=== PATIENT | female | born 1980 | race Caucasian/White ===

== ENCOUNTER → 2019-06-25 11:41 | Outpatient (BNVA) | payer BC, SELFPAY | PROVIDERS: Visit Provider Nurse Practitioner Family | DX: E11.65 Type 2 diabetes mellitus with hyperglycemia (principal); Z72.0 Tobacco use; K92.0 Hematemesis | CPT/HCPCS: 36416; 82962 ==

== ENCOUNTER 2019-06-27 19:19 | Emergency (ER) | payer BC, SELFPAY ==
[2019-06-27 19:43] VITALS: BP 104/71; PULSE 106; RESP 18; TEMP 36.3; O2SAT 98; BMI 29.0
--- NOTE | 2019-06-27 20:01 | ECG_ITS ---
Measurements Intervals [place] Rate: 101 P: 55 [place]: 132 QRS: 20 QRSD: 91 T: 47 QT: 355 QTc: 461 SINUS TACHYCARDIA POSSIBLE LEFT ATRIAL ENLARGEMENT [-0.1mV P WAVE IN V1/V2] ABNORMAL RHYTHM ECG No previous ECG available for comparison Electronically Signed On 06-28-2019 20:47:24 CDT by Haydee Haro M.D. [email or web address]
--- NOTE | 2019-06-27 20:18 | ED_ITS ---
HPI - Dizziness General: Chief Complaint: Dizziness Stated Complaint: dizzy/possible diabetic problems Time Seen by Provider: 06/27/19 20:18 History of Present Illness: HPI Narrative: Patient is a 38-year-old female who comes into the ED feeling lightheaded and dizzy. Patient states that she has been having the symptoms for the past 2 days. Patient also states that on Friday she was nauseous and vomiting a lot. She has not had any vomiting and nausea since Friday but has not eaten or drink much these past 2 days, has a loss of appetite. Patient also says she has diabetes and she is not been compliant with taking her medications and checking her blood sugars. Patient states she has been diagnosed with diabetes probably about 5 years ago and she has not taken any meds or checked her blood sugars for the past couple years. Patient states she has not eaten anything today. Patient does states she has had some shortness of breath the past couple days. Associated symptoms: Denies chest pain, chills, headache(s), nausea, nasal congestion, palpitations or vomiting Associated neuro symptoms: Deny numbness in extremities Review of Systems Const: Reports: change in appetite; Denies: fever, chills or fatigue Eyes: Denies: change in vision or eye discomfort ENMT: Denies: throat pain, painful swallowing, nasal discharge or nasal congestion Card: Reports: lightheadedness (when she stands up and is walking); Denies: chest pain, palpitations, edema, swelling of feet/ankles, shortness of breath on exertion or shortness of breath when lying down Resp: Reports: non-productive cough (chronic smokers cough); Denies: shortness of breath or productive cough GI: Reports: abdominal pain (epigastric); Denies: nausea, vomiting, diarrhea, constipation or blood in stool : Denies: flank pain, painful urination or blood in urine Musc: Denies: neck pain, back pain or extremity swelling Skin/Breast: Denies: rash or new lesion Neuro: Denies: headache, numbness in extremities or weakness in extremities PFSH ED PFSH: Family History Family/Other Diabetes Denies family history of CAD (coronary artery disease) Cancer Social History Smoking and tobacco status: current every day smoker cigarettes Packs smoked per day: 1 Quit status (tobacco): not considering quitting Second hand smoke exposure: No Alcohol intake: current Alcohol intake frequency: holidays/special occasions only Desire information about alcohol rehabilitation?: No Counseling given: No History of recent travel: No Physical Exam Narrative: EXAM NARRATIVE: Patient is a 38-year-old female who is sitting comfortably in the bed when I enter the room. She is not showing any signs of acute distress or pain. Const: COMMON NORMALS: oriented x3 HENMT: COMMON NORMALS: normocephalic HEAD & SCALP: normocephalic MOUTH: oral and palatal mucosa normal THROAT: posterior oropharynx normal and uvula midline Neck/C-Spine: COMMON NORMALS: supple GENERAL: Yes normal visual inspection Resp: COMMON NORMALS: normal respiratory effort, no retractions, no use of accessory muscles and clear to auscultation bilaterally AUSCULTATION: clear to auscultation bilaterally Cardio: COMMON NORMALS: regular rate, regular rhythm, S1 normal heart sound, S2 normal heart sound, no gallops, no clicks, no murmurs and peripheral pulses 2+ throughout RATE: regular rate RHYTHM: regular rhythm HEART SOUNDS: S1 normal and S2 normal PERIPHERAL PULSES: pulses 2+ throughout GI: COMMON NORMALS: normal to inspection, nondistended, normoactive bowel sounds, soft to palpation and no masses PALPATION: Yes soft and Yes tender Details: other (epigastric region) : COMMON NORMALS: Yes no CVA tenderness BLADDER/KIDNEY EXAM: Yes no CVA tenderness Back/Pelvis: COMMON NORMALS: no CVA tenderness Extremity: COMMON NORMALS: normal to inspection and normal capillary refill Neuro: COMMON NORMALS: oriented x3 and moves all extremities Skin: COMMON NORMALS: no rashes or lesions noted GENERAL SKIN EXAM: no rashes or lesions noted Course ED course: Orthostatic BP--Laying 116/74 HR100, sitting 105/77 HR 109, Standing 104/70 HR116. Vital Signs: Vital signs: Vital Signs Temperature 97.7 F 06/28/19 00:23 Pulse Rate 102 H 06/28/19 00:23 Respiratory Rate 16 06/28/19 00:23 Blood Pressure 102/83 06/28/19 00:23 Pulse Oximetry 98 06/28/19 00:23 MDM - Dizziness MDM Narrative: Medical decision making narrative: Patient is a 38-year-old female who comes to the ED with lightheadedness and dizziness when she is standing. Patient has a past medical history of uncontrolled diabetes and just recently started taking her Metformin again. Patient also had nausea and vomiting on Friday. Since Friday she has not eaten or drank much fluids. Patient was also having some diarrhea after just starting her Metformin up. Patient did not eat anything today and drink very little. EKG was sinus tachycardia and her CBC was remarkable for an elevated white blood cell count of 16. Orthostatic blood pressures were normal. Chest x-ray was normal and CT of the abdomen showed no acute findings. Patient was given IV fluids while here in the ED. Patient was diagnosed with uncontrolled diabetes and post viral syndrome. Patient was told to stay hydrated and drink plenty of fluids. I also encouraged her to continue taking her Metformin as prescribed and to check her blood sugars daily. I told patient to follow-up with her PCP in 5 to 7 days for reevaluation. Patient agreed with and understood plan. Lab Data: Attestation: I reviewed the patient's lab results. Labs: Lab Results 06/27/19 06/27/19 06/27/19 Range/Units 20:18 20:18 20:18 WBC 16.0 H (4.0-10.0) 10^3/ uL RBC 5.06 (4.1-5.3) 10^6/u L Hgb 14.6 (11.5-15.3) g/dL Hct 44.2 (37.0-47.0) % MCV 87.4 (81-99) fL MCH 28.9 (28.0-34.0) pg MCHC 33.0 (30.0-36.0) g/dL RDW 12.2 (12.1-15.1) % Plt Count 368 (130-400) 10^3/c mm MPV 9.8 (7.4-10.4) fL Neut % (Auto) 72.8 % Lymph % (Auto) 20.4 % [place] % (Auto) 5.5 % Eos % (Auto) 0.8 % Baso % (Auto) 0.2 % Neut # (Auto) 11.6 H (1.8-7.7) 10^3/u L Lymph # (Auto) 3.3 (0.8-4.8) 10^3/u L [place] # (Auto) 0.9 (0.2-0.9) 10^3/u L Eos # (Auto) 0.1 (0.0-0.8) 10^3/u L Baso # (Auto) 0.0 (0.0-0.1) 10^3/u L Nucleated RBC % (a uto) 0 % Nucleated RBCs # 0.0 /100WBC Sodium 135 L (136-145) mmol/L Potassium 3.7 (3.5-5.1) mmol/L Chloride 101 (98-107) mmol/L Carbon Dioxide 21 L (22-29) mmol/L Anion Gap 16.7 (5-19) BUN 11 (6-20) mg/dL Creatinine 0.4 L (0.5-0.9) mg/dL GFR Calculation 177.7 H (90-130) mL/min Glucose 217 H (65-115) mg/dL POC Glucose (70-110) mg/dL Calculated Osmolal ity 283 L (285-295) mOsm/k g Calcium 9.9 (8.5-10.5) mg/dL Magnesium 1.9 (1.7-2.3) mg/dL Total Bilirubin 1.3 H (0.15-1.2) mg/dL AST 11 (0-32) U/L ALT 14 (0-33) U/L Alkaline Phosphata se 85 (35-105) IU/L Total Protein 7.8 (6.6-8.7) g/dL Albumin 4.5 (3.5-5.2) g/dL Globulin 3.3 (1.3-4.6) g/dL HCG, Qual Negative (Negative) Urine Color (Yellow) Urine Appearance (CLEAR) Urine pH (5-7) Ur Specific Gravit y (1.005-1.030) Urine Protein (Negative) Urine Glucose (UA) (Normal) Urine Ketones (Negative) Urine Blood (Negative) Urine Nitrate (Negative) Urine Bilirubin (NEGATIVE) Urine Urobilinogen (Negative) mg/dL Ur Leukocyte Shalonda ase (Negative) Urine RBC (0-2) /hpf Urine WBC (0-5) /hpf Ur Squamous Epith Cells (0-5) Urine Bacteria (NONE) Urine Mucus 06/27/19 06/27/19 Range/Units 20:53 23:18 WBC (4.0-10.0) 10^3/ uL RBC (4.1-5.3) 10^6/u L Hgb (11.5-15.3) g/dL Hct (37.0-47.0) % MCV (81-99) fL MCH (28.0-34.0) pg MCHC (30.0-36.0) g/dL RDW (12.1-15.1) % Plt Count (130-400) 10^3/c mm MPV (7.4-10.4) fL Neut % (Auto) % Lymph % (Auto) % [place] % (Auto) % Eos % (Auto) % Baso % (Auto) % Neut # (Auto) (1.8-7.7) 10^3/u L Lymph # (Auto) (0.8-4.8) 10^3/u L [place] # (Auto) (0.2-0.9) 10^3/u L Eos # (Auto) (0.0-0.8) 10^3/u L Baso # (Auto) (0.0-0.1) 10^3/u L Nucleated RBC % (a uto) % Nucleated RBCs # /100WBC Sodium (136-145) mmol/L Potassium (3.5-5.1) mmol/L Chloride (98-107) mmol/L Carbon Dioxide (22-29) mmol/L Anion Gap (5-19) BUN (6-20) mg/dL Creatinine (0.5-0.9) mg/dL GFR Calculation (90-130) mL/min Glucose (65-115) mg/dL POC Glucose 219 (70-110) mg/dL Calculated Osmolal ity (285-295) mOsm/k g Calcium (8.5-10.5) mg/dL Magnesium (1.7-2.3) mg/dL Total Bilirubin (0.15-1.2) mg/dL AST (0-32) U/L ALT (0-33) U/L Alkaline Phosphata se (35-105) IU/L Total Protein (6.6-8.7) g/dL Albumin (3.5-5.2) g/dL Globulin (1.3-4.6) g/dL HCG, Qual (Negative) Urine Color Yellow (Yellow) Urine Appearance Clear (CLEAR) Urine pH 5 (5-7) Ur Specific Gravit y 1.015 (1.005-1.030) Urine Protein 1+ H (Negative) Urine Glucose (UA) 2+ (Normal) Urine Ketones 2+ H (Negative) Urine Blood Neg (Negative) Urine Nitrate Negative (Negative) Urine Bilirubin Neg (NEGATIVE) Urine Urobilinogen Norm (Negative) mg/dL Ur Leukocyte Shalonda ase Negative (Negative) Urine RBC 0-4 H (0-2) /hpf Urine WBC 0-4 H (0-5) /hpf Ur Squamous Epith Cells 15-25 H (0-5) Urine Bacteria 2+ H (NONE) Urine Mucus 2+ Imaging Data^: CT Abd/Pel: Attestation: I personally reviewed and interpreted this imaging study as follows: Radiologist's impression: [place] [address] CT Scan Report Signed Patient: Lisa Gary Unit #: [id number] : 1980 Age/Sex: 38 / F ADM Date: 06/27/19 Loc: ER Room/Bed: Attending Dr: Ordering Provider/Ordering MD: Michi Brooke Date of Service: 06/27/19 Procedure(s): CT abdomen pelvis w con* [id number] Accession Number(s): [id number] Report Number: [id number] PROCEDURE INFORMATION: Exam: CT Abdomen And Pelvis With Contrast Exam date and time: 06/27/2019 9:50 PM Age: 38 years old Clinical indication: Abdominal pain; Prior surgery; Surgery date: 6+ months; Surgery type: Tubal; Patient HX: Epigastric pain w n/v/d x 2 days; Additional info: Abd pain (epigastric) nausea and vomiting TECHNIQUE: Imaging protocol: Computed tomography of the abdomen and pelvis with intravenous contrast. Total DLP: 725.38 mGy-cm Radiation optimization: All CT scans at this facility use at least one of these dose optimization techniques: automated exposure control; mA and/or kV adjustment per patient size (includes targeted exams where dose is matched to clinical indication); or iterative reconstruction. Contrast material: OMNI 300; Contrast volume: 95 ml; Contrast route: 20G; COMPARISON: No relevant prior studies available. FINDINGS: Lungs: Limited assessment lung bases without visible evidence of active pathologic process. Liver: Hepatomegaly at 20 cm. No mass. Gallbladder and bile ducts: Gallbladder free of cholelithiasis. No visible intra or extrahepatic biliary ectasia. Pancreas: Normal. No ductal dilation. Spleen: Normal. No splenomegaly. Adrenals: Normal. No mass. Kidneys and ureters: Normal. No hydronephrosis. Stomach and bowel: Nonobstructive bowel pattern. No visible adynamic or reactive ileus. No evidence for diverticulosis coli or diverticulitis. Appendix: Appendix noninflamed. Intraperitoneal space: No visible generalized ascites or free fluid in the pelvis. Vasculature: The abdominal aorta is nonaneurysmal. Mild arterial sclerotic disease. Lymph nodes: Unremarkable. No enlarged lymph nodes. Bladder: Unremarkable as visualized. Reproductive: Simple right ovarian cyst maximum diameter 21 mm. No follow-up recommended. Bones/joints: Early degenerative disc disease L5/S1. Left paramedian focal annular disc bulge L5/S1 which may compromise the left S1 nerve root. No acute fracture. Soft tissues: Unremarkable. CT/CT abdomen pelvis w con* [id number] IMPRESSION: 1. No visible evidence of active or acute abdominal or pelvic pathologic process. 2. Hepatomegaly. 3. Simple right ovarian cyst maximum diameter 21 mm. No follow-up recommended. 4. Left paramedian focal annular disc bulge L5/S1 which may compromise the left S1 nerve root. 5. Mild arterial sclerotic disease of a nonaneurysmal abdominal aorta. 6. Appendix noninflamed Radiation Dose CTDIVOL = (mGy): DLP = 725.38 (mGy-cm) Dictated By: Leonel Villa Signed By: Leonel Villa Signed Date/Time: 06/27/192234 DD/ 32 CXR: Attestation: I personally reviewed and interpreted this imaging study as follows: My impression: No acute findings and no warmth. Pending final radiology report. EKG Data^: EKG 1: Attestation: I personally reviewed and interpreted this EKG as follows: EKG interpretation date: 06/27/19 Interpretation: Sinus tachycardia, P waves present, 101 bpm, no ST segment elevation or depression seen. Discharge Plan Discharge Patient Disposition: Home, Self-Care Clinical Impression: Post viral syndrome Diabetes mellitus type 2, uncontrolled Qualifiers: Glycemic state: with hyperglycemia Qualified Code(s): E11.65 - Type 2 diabetes mellitus with hyperglycemia Condition: Stable Prescriptions: No Action metformin 500 mg tablet 500 mg PO BID RF: 0 Referrals: Dariana Lemons NP [Primary Care Provider] - Discharge Diet: Diabetic Discharge Activity: Resume usual activity Patient Instructions: Type 2 Diabetes, Diabetes and Diet Activity Restrictions/Additional Instructions: Follow-up with your PCP in 5-7 days for reevaluation. Hold taking your metformin for 2 days. Then you can start taking your diabetes medications daily as prescribed and also checking your blood sugars daily. Drink plenty of fluids and stay hydrated. 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
[2019-06-27 20:26] LABS: Basophils % 0.2 %; Eosinophils # 0.1 10^3/uL (0.0-0.8); Eosinophils % 0.8 %; Hematocrit 44.2 % (37.0-47.0); Hemoglobin 14.6 g/dL (11.5-15.3); Lymphocytes # 3.3 10^3/uL (0.8-4.8); Lymphocytes % 20.4 %; Mean Corpuscular Hemoglobin 28.9 pg (28.0-34.0); Mean Corpuscular Volume 87.4 fL (81-99); Mean Platelet Volume 9.8 fL (7.4-10.4); Monocytes # 0.9 10^3/uL (0.2-0.9); Monocytes % 5.5 %; Neutrophils # 11.6 10^3/uL (1.8-7.7); Neutrophils % 72.8 %; Nucleated Red Blood Cells % 0 %; Platelet Count 368 10^3/cmm (130-400); Red Blood Count 5.06 10^6/uL (4.1-5.3); Red Cell Distribution Width 12.2 % (12.1-15.1)
[2019-06-27 20:37] LABS: HCG, Serum Qual Negative (Negative)
[2019-06-27 20:40] LABS: Alanine Aminotransferase 14 U/L (0-33); Albumin Level 4.5 g/dL (3.5-5.2); Alkaline Phosphatase 85 IU/L (35-105); Anion Gap 16.7 (5-19); Aspartate Amino Transferase 11 U/L (0-32); Blood Urea Nitrogen 11 mg/dL (6-20); Calcium 9.9 mg/dL (8.5-10.5); Carbon Dioxide 21 mmol/L (22-29); Chloride 101 mmol/L (98-107); Globulin 3.3 g/dL (1.3-4.6); Glomerular Filtration Rate 177.7 mL/min (90-130); Glucose 217 mg/dL (65-115); Magnesium 1.9 mg/dL (1.7-2.3); Osmolality Calculated 283 mOsm/kg (285-295); Potassium 3.7 mmol/L (3.5-5.1); Sodium 135 mmol/L (136-145); Total Bilirubin 1.3 mg/dL (0.15-1.2); Total Protein 7.8 g/dL (6.6-8.7)
--- NOTE | 2019-06-27 20:54 | PC.NURSE ---
ayejdr=006 mg/dl
--- NOTE | 2019-06-27 21:01 | CTR_ITS ---
PROCEDURE INFORMATION: Exam: CT Abdomen And Pelvis With Contrast Exam date and time: 06/27/2019 9:50 PM Age: 38 years old Clinical indication: Abdominal pain; Prior surgery; Surgery date: 6+ months; Surgery type: Tubal; Patient HX: Epigastric pain w n/v/d x 2 days; Additional info: Abd pain (epigastric) nausea and vomiting TECHNIQUE: Imaging protocol: Computed tomography of the abdomen and pelvis with intravenous contrast. Total DLP: 725.38 mGy-cm Radiation optimization: All CT scans at this facility use at least one of these dose optimization techniques: automated exposure control; mA and/or kV adjustment per patient size (includes targeted exams where dose is matched to clinical indication); or iterative reconstruction. Contrast material: OMNI 300; Contrast volume: 95 ml; Contrast route: 20G; COMPARISON: No relevant prior studies available. FINDINGS: Lungs: Limited assessment lung bases without visible evidence of active pathologic process. Liver: Hepatomegaly at 20 cm. No mass. Gallbladder and bile ducts: Gallbladder free of cholelithiasis. No visible intra or extrahepatic biliary ectasia. Pancreas: Normal. No ductal dilation. Spleen: Normal. No splenomegaly. Adrenals: Normal. No mass. Kidneys and ureters: Normal. No hydronephrosis. Stomach and bowel: Nonobstructive bowel pattern. No visible adynamic or reactive ileus. No evidence for diverticulosis coli or diverticulitis. Appendix: Appendix noninflamed. Intraperitoneal space: No visible generalized ascites or free fluid in the pelvis. Vasculature: The abdominal aorta is nonaneurysmal. Mild arterial sclerotic disease. Lymph nodes: Unremarkable. No enlarged lymph nodes. Bladder: Unremarkable as visualized. Reproductive: Simple right ovarian cyst maximum diameter 21 mm. No follow-up recommended. Bones/joints: Early degenerative disc disease L5/S1. Left paramedian focal annular disc bulge L5/S1 which may compromise the left S1 nerve root. No acute fracture. Soft tissues: Unremarkable. CT/CT abdomen pelvis w con* [id number] IMPRESSION: 1. No visible evidence of active or acute abdominal or pelvic pathologic process. 2. Hepatomegaly. 3. Simple right ovarian cyst maximum diameter 21 mm. No follow-up recommended. 4. Left paramedian focal annular disc bulge L5/S1 which may compromise the left S1 nerve root. 5. Mild arterial sclerotic disease of a nonaneurysmal abdominal aorta. 6. Appendix noninflamed Radiation Dose CTDIVOL = (mGy): DLP = 725.38 (mGy-cm)
[2019-06-27 21:04] LABS: Glucose Point of Care 219 mg/dL (70-110)
[2019-06-27 21:27] VITALS: BP 96/66; PULSE 99; RESP 16; TEMP 36.8; O2SAT 97
--- NOTE | 2019-06-27 21:49 | XRR_ITS ---
PROCEDURE INFORMATION: Exam: XR Chest, 1 View Exam date and time: 06/27/2019 10:34 PM Age: 38 years old Clinical indication: Dyspnea; Additional info: Shortness of breath TECHNIQUE: Imaging protocol: XR of the chest Views: 1 view. COMPARISON: No relevant prior studies available. FINDINGS: Lungs: Unremarkable. No consolidation. Pleural space: Unremarkable. No pleural effusion. No pneumothorax. Heart/Mediastinum: Unremarkable. No cardiomegaly. Bones/joints: Unremarkable. XR/XR chest 1V portable [id number] IMPRESSION: No acute findings.
[2019-06-27] MEDS: sodium chloride 0.9% 1,000 ML 999 ML IV (21:51)
[2019-06-27] MEDS: iohexol 300 mg/mL 100 mL Btl IV (22:01)
[2019-06-27 23:59] LABS: Urine Appearance Clear (CLEAR); Urine Color Yellow (Yellow)
[2019-06-28 00:05] LABS: Bilirubin Urine Neg (NEGATIVE); Blood Urine Neg (Negative); Glucose Urine UA 2+ (Normal); Ketones Urine 2+ (Negative); Leukocyte Esterase Urine Negative (Negative); Nitrate Urine Negative (Negative); Protein Urine 1+ (Negative); Specific Gravity, Urine 1.015 (1.005-1.030); Urobilinogen Urine Norm (Negative); pH Urine 5 (5-7)
[2019-06-28 00:06] LABS: RBC Urine 0-4 /hpf (0-2); Squamous Epithelial Cell Urine 15-25 (0-5); WBC Urine 0-4 /hpf (0-5)
[2019-06-28 00:07] LABS: Bacteria Urine 2+; Mucus Urine 2+
[2019-06-28 00:23] VITALS: BP 102/83; PULSE 102; RESP 16; TEMP 36.5; O2SAT 98
== END 2019-06-28 00:22 | disposition home or self-care (01) ==
PROVIDERS: Emergency Medicine; Emergency Provider Physician Assistant; PCP Nurse Practitioner Family
DX: G93.3 Postviral and related fatigue syndromes (principal); E11.649 Type 2 diabetes mellitus with hypoglycemia without coma; F17.210 Nicotine dependence, cigarettes, uncomplicated; Z79.84 Long term (current) use of oral hypoglycemic drugs; Z91.14 Patient's other noncompliance with medication regimen
CPT/HCPCS: 12345; 36416; 71045; 74177; 80053; 80061; 81001; 82962; 83036; 83735; 84703; 85025; 93005; 96360; 99283; A9270; J7030; Q9967

== ENCOUNTER 2019-08-04 23:18 | Emergency (ER) | payer BC, SELFPAY ==
--- NOTE | 2019-08-04 23:45 | W.ED.NAVMDI ---
HPI - Nausea/Vomiting/Diarrhea General: Chief complaint: General Medical Stated complaint: n/v Time Seen by Provider: 08/04/19 23:45 Source: patient Mode of arrival: ambulatory Limitations: no limitations History of Present Illness: HPI Narrative: Patient comes in today for complaints of nausea and vomiting with fever starting this evening. Patient states that she was seen earlier in the day and started on Bactrim for a urinary tract infection. Patient had taken 1 dose of the medication this evening. Patient appears mildly unwell. Patient is talkative without any acute distress. Vital signs are normal except for a fever of 100.1 and some increased pulse rate. Associated nausea: Yes Associated symtoms: Reports nausea Review of Systems General: Reports: 10 or more systems reviewed and unremarkable except in HPI and below GI: Reports: nausea and vomiting PFSH ED PFSH: Social History Smoking and tobacco status: current every day smoker cigarettes Packs smoked per day: 1 Quit status (tobacco): not considering quitting Second hand smoke exposure: No Alcohol intake: current Alcohol intake frequency: holidays/special occasions only Desire information about alcohol rehabilitation?: No Counseling given: No History of recent travel: No Physical Exam Const: COMMON NORMALS: no apparent distress and oriented x3 GENERAL APPEARANCE: cooperative HENMT: COMMON NORMALS: normocephalic, TM's normal bilaterally and external nose normal HEAD & SCALP: normal to inspection and normocephalic NOSE: external nose normal TYMPANIC MEMBRANE: TM's normal bilaterally MOUTH: oral and palatal mucosa normal THROAT: posterior oropharynx normal Eye: GENERAL EYE: normal appearance of both eyes Neck/C-Spine: COMMON NORMALS: full ROM Lymph: LYMPHATIC: no lymphadenopathy noted Chest: COMMONS NORMALS: inspection of chest normal Resp: COMMON NORMALS: normal respiratory effort EFFORT & INSPECTION: Yes able to speak in complete sentences Cardio: COMMON NORMALS: regular rate and regular rhythm RATE: regular rate RHYTHM: regular rhythm GI: COMMON NORMALS: non-tender : COMMON NORMALS: Yes no CVA tenderness BLADDER/KIDNEY EXAM: Yes no CVA tenderness Back/Pelvis: COMMON NORMALS: no CVA tenderness and thoracic and lumbar spine normal to inspection Extremity: COMMON NORMALS: normal to inspection Neuro: COMMON NORMALS: oriented x3 and moves all extremities Psych: COMMON NORMALS: mental status grossly normal and cooperative Skin: COMMON NORMALS: no rashes or lesions noted GENERAL SKIN EXAM: no rashes or lesions noted Course Vital Signs: Vital signs: Vital Signs Temperature 98.7 F 08/05/19 01:48 Pulse Rate 118 H 08/05/19 01:48 Respiratory Rate 18 08/05/19 01:48 Blood Pressure 106/49 08/05/19 01:48 Pulse Oximetry 94 08/05/19 01:48 MDM - Nausea/Vomiting/Diarrhea MDM Narrative: Medical decision making narrative: Patient comes in today with complaints of fever, and nausea and vomiting. Patient was started on Bactrim earlier today for a urinary tract infection. Exam notes lung sounds are clear to auscultation. Skin is warm and dry color is pink. Vital signs no elevated temperature of 100.4 and a pulse rate of 123. Differential diagnosis includes but not limited to sepsis, urinary tract infection, pneumonia, gastroenteritis, cholecystitis and dehydration. Laboratory values noted a white count 22.7 a lactate of 3.4, normal procalcitonin, normal CRP, urinalysis with white blood cells and nitrites. Chest x-ray had a hazy patchy in the right lower field that may be technical service representative of a early pneumonia. Patient reported no cough at home. Recommended treatment for urinary tract infection and pneumonia. Patient's antibiotics were switched from Bactrim to doxycycline for pneumonia and cephalexin for the urinary tract infection. Patient was given 1 g of Rocephin in the emergency room and 1 dose of doxycycline p.o. Patient was also given ondansetron for nausea and vomiting and had no further episodes of nausea and vomiting in the ER. Recommended Tylenol and ibuprofen for pain and fever. Recommend return to the ER for increasing symptoms or difficulty breathing. Patient reported understanding agreed to plan. Reviewed COVID risk with patient she reports no travel outside the area and not being around anyone that has been ill. Lab Data: Labs: Lab Results 08/04/19 08/04/19 08/04/19 Range/Units 00:15 23:58 23:58 WBC 22.7 H (4.0-10.0) 10^3/ uL RBC 4.76 (4.1-5.3) 10^6/u L Hgb 14.0 (11.5-15.3) g/dL Hct 41.6 (37.0-47.0) % MCV 87.4 (81-99) fL MCH 29.4 (28.0-34.0) pg MCHC 33.7 (30.0-36.0) g/dL RDW 11.9 L (12.1-15.1) % Plt Count 308 (130-400) 10^3/c mm MPV 10.2 (7.4-10.4) fL Neut % (Auto) 86.9 % Lymph % (Auto) 6.7 % [place] % (Auto) 5.0 % Eos % (Auto) 0.8 % Baso % (Auto) 0.3 % Neut # (Auto) 19.7 H (1.8-7.7) 10^3/u L Lymph # (Auto) 1.5 (0.8-4.8) 10^3/u L [place] # (Auto) 1.1 H (0.2-0.9) 10^3/u L Eos # (Auto) 0.2 (0.0-0.8) 10^3/u L Baso # (Auto) 0.1 (0.0-0.1) 10^3/u L Nucleated RBC % (a uto) 0 % Nucleated RBCs # 0.0 /100WBC Sodium 136 (136-145) mmol/L Potassium 3.7 (3.5-5.1) mmol/L Chloride 100 (98-107) mmol/L Carbon Dioxide 22 (22-29) mmol/L Anion Gap 17.7 (5-19) BUN 13 (6-20) mg/dL Creatinine 0.6 (0.5-0.9) mg/dL GFR Calculation 111.3 (90-130) mL/min Glucose 215 H (65-115) mg/dL Calculated Osmolal ity 285 (285-295) mOsm/k g Lactic Acid 3.4 H (0.5-2.2) mmol/L Calcium 9.3 (8.5-10.5) mg/dL Total Bilirubin 0.3 (0.15-1.2) mg/dL AST 13 (0-32) U/L ALT 12 (0-33) U/L Alkaline Phosphata se 80 (35-105) IU/L C-Reactive Protein 1.8 (0.0-4.9) mg/L Total Protein 6.8 (6.6-8.7) g/dL Albumin 4.0 (3.5-5.2) g/dL Globulin 2.8 (1.3-4.6) g/dL Lipase 16 (13-60) U/L Procalcitonin 0.04 (0-0.5) ng/mL Urine Color (Yellow) Urine Appearance (CLEAR) Urine pH (5-7) Ur Specific Gravit y (1.005-1.030) Urine Protein (Negative) Urine Glucose (UA) (Normal) Urine Ketones (Negative) Urine Blood (Negative) Urine Nitrate (Negative) Urine Bilirubin (NEGATIVE) Urine Urobilinogen (Negative) mg/dL Ur Leukocyte Shalonda ase (Negative) Urine RBC (0-2) /hpf Urine WBC (0-5) /hpf Ur Squamous Epith Cells (0-5) Urine Bacteria (NONE) 08/05/19 Range/Units 01:20 WBC (4.0-10.0) 10^3/ uL RBC (4.1-5.3) 10^6/u L Hgb (11.5-15.3) g/dL Hct (37.0-47.0) % MCV (81-99) fL MCH (28.0-34.0) pg MCHC (30.0-36.0) g/dL RDW (12.1-15.1) % Plt Count (130-400) 10^3/c mm MPV (7.4-10.4) fL Neut % (Auto) % Lymph % (Auto) % [place] % (Auto) % Eos % (Auto) % Baso % (Auto) % Neut # (Auto) (1.8-7.7) 10^3/u L Lymph # (Auto) (0.8-4.8) 10^3/u L [place] # (Auto) (0.2-0.9) 10^3/u L Eos # (Auto) (0.0-0.8) 10^3/u L Baso # (Auto) (0.0-0.1) 10^3/u L Nucleated RBC % (a uto) % Nucleated RBCs # /100WBC Sodium (136-145) mmol/L Potassium (3.5-5.1) mmol/L Chloride (98-107) mmol/L Carbon Dioxide (22-29) mmol/L Anion Gap (5-19) BUN (6-20) mg/dL Creatinine (0.5-0.9) mg/dL GFR Calculation (90-130) mL/min Glucose (65-115) mg/dL Calculated Osmolal ity (285-295) mOsm/k g Lactic Acid (0.5-2.2) mmol/L Calcium (8.5-10.5) mg/dL Total Bilirubin (0.15-1.2) mg/dL AST (0-32) U/L ALT (0-33) U/L Alkaline Phosphata se (35-105) IU/L C-Reactive Protein (0.0-4.9) mg/L Total Protein (6.6-8.7) g/dL Albumin (3.5-5.2) g/dL Globulin (1.3-4.6) g/dL Lipase (13-60) U/L Procalcitonin (0-0.5) ng/mL Urine Color Yellow (Yellow) Urine Appearance Cloudy (CLEAR) Urine pH 8 H (5-7) Ur Specific Gravit y 1.015 (1.005-1.030) Urine Protein Neg (Negative) Urine Glucose (UA) Norm (Normal) Urine Ketones 1+ H (Negative) Urine Blood Neg (Negative) Urine Nitrate Positive H (Negative) Urine Bilirubin Neg (NEGATIVE) Urine Urobilinogen Norm (Negative) mg/dL Ur Leukocyte Shalonda ase 2+ H (Negative) Urine RBC 0-4 H (0-2) /hpf Urine WBC 25-40 H (0-5) /hpf Ur Squamous Epith Cells 0-4 H (0-5) Urine Bacteria 2+ H (NONE) Discharge Plan Discharge Patient Disposition: Home, Self-Care Clinical Impression: Pneumonia Qualifiers: Pneumonia type: due to unspecified organism Laterality: right Lung location: lower lobe of lung Qualified Code(s): J18.9 - Pneumonia, unspecified organism UTI (urinary tract infection) Qualifiers: Urinary tract infection type: acute cystitis Hematuria presence: without hematuria Qualified Code(s): N30.00 - Acute cystitis without hematuria Condition: Stable Prescriptions: New doxycycline hyclate 100 mg tablet 100 mg PO BID 10 Days Qty: 20 RF: 0 cephalexin 500 mg capsule 500 mg PO BID 7 Days Qty: 14 RF: 0 ondansetron HCl 4 mg tablet 4 mg PO Q8H PRN (Reason: nausea and vomiting) Qty: 7 RF: 0 No Action metformin 500 mg tablet 500 mg PO BID RF: 0 Discharge Orders: Discharge Order (Routine); Ordered 08/05/19 Ordered By: Franklin Delgado Referrals: Dariana Lemons NP [Primary Care Provider] - Discharge Diet: Usual diet Discharge Activity: Increase activity as tolerated Patient Instructions: Pneumonia (ED) Activity Restrictions/Additional Instructions: Home and rest, drink plenty of fluids, take antibiotics as directed. Stop the Bactrim, start doxycycline 100 mg p.o. 1 capsule twice a day and cephalexin 500 mg twice a day each for 10 days. Drink plenty of fluids and follow-up with primary care in 1 week. Return to the ER for worsening shortness of breath or new concerns. Coding Level of Care Code ED Optical Fabrication Technician for Rola Fwd Exam Comprehensive
[2019-08-04 23:46] VITALS: BP 135/78; PULSE 123; RESP 20; TEMP 38.6; O2SAT 98
--- NOTE | 2019-08-04 23:57 | XR_ITS ---
WS: [id number] PORTABLE CHEST HISTORY: fever COMPARISON: 06/27/2019 Linear opacifications at the RIGHT lung base. No pleural effusion or pneumothorax. Cardiac size: Normal. Mediastinum/Aorta: Normal mediastinum. No osseous abnormality seen. XR/XR chest 1V portable [id number] IMPRESSION: 1. New linear opacifications at the RIGHT lung base. Pneumonitis versus atelec tasis or developing pneumonia. 2. Otherwise negative.
[2019-08-05 00:05] LABS: Basophils # 0.1 10^3/uL (0.0-0.1); Basophils % 0.3 %; Eosinophils # 0.2 10^3/uL (0.0-0.8); Eosinophils % 0.8 %; Hematocrit 41.6 % (37.0-47.0); Lymphocytes # 1.5 10^3/uL (0.8-4.8); Lymphocytes % 6.7 %; Mean Corpuscular HGB Conc 33.7 g/dL (30.0-36.0); Mean Corpuscular Hemoglobin 29.4 pg (28.0-34.0); Mean Corpuscular Volume 87.4 fL (81-99); Mean Platelet Volume 10.2 fL (7.4-10.4); Monocytes # 1.1 10^3/uL (0.2-0.9); Neutrophils # 19.7 10^3/uL (1.8-7.7); Neutrophils % 86.9 %; Nucleated Red Blood Cells % 0 %; Platelet Count 308 10^3/cmm (130-400); Red Blood Count 4.76 10^6/uL (4.1-5.3); Red Cell Distribution Width 11.9 % (12.1-15.1); White Blood Count 22.7 10^3/uL (4.0-10.0)
[2019-08-05] MEDS: acetaminophen 500 mg Tablet 1000 MG PO (00:08)
[2019-08-05] MEDS: sodium chloride 0.9% 1,000 ML 999 ML IV (00:09)
[2019-08-05] MEDS: ondansetron 2 mg/ML SDV 2 mL 4 MG IVP (00:11)
[2019-08-05 00:18] LABS: Alanine Aminotransferase 12 U/L (0-33); Alkaline Phosphatase 80 IU/L (35-105); Anion Gap 17.7 (5-19); Aspartate Amino Transferase 13 U/L (0-32); Blood Urea Nitrogen 13 mg/dL (6-20); Calcium 9.3 mg/dL (8.5-10.5); Carbon Dioxide 22 mmol/L (22-29); Chloride 100 mmol/L (98-107); Globulin 2.8 g/dL (1.3-4.6); Glomerular Filtration Rate 111.3 mL/min (90-130); Glucose 215 mg/dL (65-115); Lipase 16 U/L (13-60); Osmolality Calculated 285 mOsm/kg (285-295); Potassium 3.7 mmol/L (3.5-5.1); Sodium 136 mmol/L (136-145); Total Bilirubin 0.3 mg/dL (0.15-1.2); Total Protein 6.8 g/dL (6.6-8.7)
[2019-08-05 00:42] LABS: Lactic Sepsis W/Reflex 3.4 mmol/L (0.5-2.2)
[2019-08-05 01:26] LABS: Procalcitonin 0.04 ng/mL (0-0.5)
[2019-08-05 01:38] LABS: C Reactive Protein 1.8 mg/L (0.0-4.9)
[2019-08-05] MEDS: doxycycline 100 mg Tablet PO (01:45)
[2019-08-05] MEDS: cefTRIAXone 1,000 MG in sodium chloride 0.9% (plus) 50 ML 100 MG IV (01:46)
[2019-08-05 01:48] VITALS: BP 106/49; PULSE 118; RESP 18; TEMP 37.1; O2SAT 94
[2019-08-05 02:03] LABS: Blood Urine Neg (Negative); Glucose Urine UA Norm (Normal); Ketones Urine 1+ (Negative); Protein Urine Neg (Negative); Specific Gravity, Urine 1.015 (1.005-1.030); Urine Appearance Cloudy (CLEAR); Urine Color Yellow (Yellow); pH Urine 8 (5-7)
[2019-08-05 02:04] LABS: Reflex Lactate Order REFLEX LACTIC ORDERD
[2019-08-05 02:04] LABS: Add Urine Culture? Yes; Add Urine Microscopic? YES; Bacteria Urine 2+; Bilirubin Urine Neg (NEGATIVE); Leukocyte Esterase Urine 2+ (Negative); Nitrate Urine Positive (Negative); RBC Urine 0-4 /hpf (0-2); Squamous Epithelial Cell Urine 0-4 (0-5); Urobilinogen Urine Norm (Negative); WBC Urine 25-40 /hpf (0-5)
[2019-08-05 02:31] LABS: Lactic Acid level (Lactate) 3.2 mmol/L (0.5-2.2)
[2019-08-05 02:35] VITALS: BP 104/61; PULSE 120; RESP 18; O2SAT 97
== END 2019-08-05 02:36 | disposition home or self-care (01) ==
PROVIDERS: Emergency Provider Nurse Practitioner Family; PCP Nurse Practitioner Family
DX: J18.9 Pneumonia, unspecified organism (principal); N30.00 Acute cystitis without hematuria; F17.210 Nicotine dependence, cigarettes, uncomplicated
CPT/HCPCS: 12345; 36415; 71045; 80053; 81001; 83605; 83690; 84145; 85025; 86140; 87077; 87086; 87186; 96375; 99283; J0696; J2405; J7030

== ENCOUNTER → 2020-11-23 13:41 | Outpatient (BNVA) | payer BC, SELFPAY | PROVIDERS: PCP Nurse Practitioner Family; Referring Provider Physician Assistant; Visit Provider Specialist | DX: G56.01 Carpal tunnel syndrome, right upper limb (principal); G56.21 Lesion of ulnar nerve, right upper limb; F17.210 Nicotine dependence, cigarettes, uncomplicated | CPT/HCPCS: 95908 ==

== ENCOUNTER → 2020-12-08 09:38 | Outpatient (BNVA) | payer BC, SELFPAY | PROVIDERS: PCP Nurse Practitioner Family; Referring Provider Orthopaedic Surgery; Visit Provider Orthopaedic Surgery | DX: Z20.822 Contact with and (suspected) exposure to COVID-19 (principal) | CPT/HCPCS: 87635 ==

== ENCOUNTER 2020-12-13 05:36 | Day surgery (SDC) | payer BC, SELFPAY ==
[2020-12-12 08:41] VITALS: BMI 30.9
[2020-12-13 06:07] VITALS: BP 124/70; PULSE 83; RESP 18; TEMP 36.7; O2SAT 99
[2020-12-13 06:14] LABS: OR HCG Qualitative Urine Negative (Negative)
[2020-12-13 06:34] LABS: Glucose Point of Care 216 mg/dL (70-110)
[2020-12-13] MEDS: sodium chloride 0.9% 1,000 ML 30 ML IV (06:34)
--- NOTE | 2020-12-13 07:06 | W.PM.OPSUD ---
Surgery/Procedure H&P Update DATE OF PROCEDURE: December 13, 2020 DATE H&P PERFORMED: 11/29/20 PREOP DIAGNOSIS: Carpal tunnel syndrome/cubital tunnel syndrome right arm PLANNED PROCEDURE: Operation Date: 12/13/20 07:00 Proposed Procedures p Carpal Tunnel Release [id number] G56.01(Right) - Nadeem Haas MD s [place] Nerve Decompression(Right) - Nadeem Haas MD
--- NOTE | 2020-12-13 07:44 | ANES.PREANE2 ---
Pre-Anesthetic Assessment Pre-Anesthetic Assessment: Height/Weight: Height 1.63 m Weight 81.647 kg Temp Pulse Resp BP Pulse Ox 98.1 F 83 18 124/70 99 12/13/20 06:07 12/13/20 06:07 12/13/20 06:07 12/13/20 06:07 12/13/20 06:07 Preop Diagnosis: Carpal tunnel syndrome/cubital tunnel syndrome right arm Proposed Procedure: Operation Date: 12/13/20 07:00 Proposed Procedures p Carpal Tunnel Release [id number] G56.01(Right) - Nadeem Haas MD s [place] Nerve Decompression(Right) - Nadeem Haas MD Was Beta Zuleyka taken within 24 hours: N/A Was Clonidine taken within 24 hours: N/A Last intake: Intake Last Liquid Date 12/12/20 Last Liquid Time 22:00 Last Solid Date 12/12/20 Last Solid Time 18:00 Social: Social History: Tobacco and No alcohol Exam: Pre-Anes Outpt Exam: alert, oriented x 3, clear to auscultation bilaterally and regular rate & rhythm Airway: Submandibular: WNL Cervical ROM: WNL MP: 2 Dentition: Full Metabolic: Metabolic: DM Anesthetic Plan: ASA status: 3 Anesthesia: General Risk of > 500 ml blood loss (7ml/kg in children): No Meds/Allergies Current Medications: Current Medications Generic Name Dose Route Start Last Admin Trade Name Freq PRN Reason Stop Dose Admin Sodium Chloride 1,000 mls @ 30 ml s/hr 12/13/20 06:00 12/13/20 06:34 Sodium Chloride 0.9% IV 12/14/20 05:59 30 mls/hr .Q24H HIPOLITO Administration PFSH Anesthesia PFSH: Medical History Type 2 diabetes mellitus Surgical History H/O tubal ligation Family History Family/Other Diabetes Denies family history of CAD (coronary artery disease) Cancer Social History Smoking and tobacco status: current every day smoker cigarettes Packs smoked per day: 1 Quit status (tobacco): not considering quitting Second hand smoke exposure: No Alcohol intake: current Alcohol intake frequency: holidays/special occasions only Desire information about alcohol rehabilitation?: No Counseling given: No History of recent travel: No Female Reproductive History: Date of last menstrual period: 07/09/19 Data Anesthesia Other Labs: Laboratory Results - last 48 hr 12/13/20 12/13/20 06:02 06:31 POC Glucose 216 H Urine HCG, Qual Negative Cardiac Studies: No Data to Display
[2020-12-13 08:06] VITALS: BP 131/78; PULSE 80; RESP 14; TEMP 36.7; O2SAT 98
--- NOTE | 2020-12-13 08:07 | P.OP_ITS ---
Operative Report Date of procedure: December 13, 2020 Pre-op Diagnosis: Carpal tunnel syndrome/cubital tunnel syndrome right arm Post-op diagnosis: same Post-op Findings: Same Procedure Done: Right ulnar nerve decompression, right carpal tunnel release Pathology: none sent Surgeon: Nadeem Haas Anesthesia: Nerve Block (Kathy block) Estimated blood loss (mL): 1 Tourniquet time (min): 24 Findings: None Condition: stable Disposition: PACU Procedure: The patient was taken to the operating room and given a general anesthesia. A tourniquet was inflated to 225 mmHg. A timeout was performed. A 5 cm long incision was made behind the medial epicondyle. Dissection was accomplished bluntly under loupe magnification identifying the ulnar nerve proximally. Utilizing a hemostat the fascia over the nerve was elevated and incised proximally. Dissection was then carried distally behind the medial epicondyle and into the flexor carpi ulnaris musculature. Dissection was stopped with the first muscular branches identified. Elbow was brought through range of motion with the nerve seen to stay reduced behind the medial epicondyl e. No formal transition was thought to be warranted. Wounds were irrigated with saline. A 3 cm long incision was made in line with the fourth ray from the distal edge of the carpal tunnel extending proximally. The subcutaneous fat and palmar fascia was divided with a scalpel blade. Under loupe magnification the ulnar neurovascular bundle was identified distally. A hemostat could be passed under the transverse carpal ligament allowing the distal 25% to be divided. A slotted guide was then passed beneath the transverse carpal ligament and the middle 50% divided. Blunt scissors were then passed over the guide freeing the proximal ligament. The tourniquet was deflated. Hemostasis provided with electrocautery. Wound edges were infiltrated with 10 cc of a half percent Marcaine solution along both incisions. Carpal tunnel skin edges were reapproximated with 3-0 Prolene. Subcutaneous elbow incision was closed with 3-0 Vicryl. The skin was closed with vertical mattress 3-0 Prolene. Xeroform gauze, 4 x 4's, compressive labral, and Ashok wrap, and a sling were applied. The patient was taken recovery room in stable condition.
[2020-12-13 08:11] VITALS: BP 136/88; PULSE 79; RESP 15; TEMP 36.7; O2SAT 96
[2020-12-13 08:17] VITALS: BP 136/86; PULSE 79; RESP 18; TEMP 36.7; O2SAT 98
[2020-12-13] MEDS: HYDROcodone-acetaminophen 5-325 mg Tablet 1 TAB PO (08:37)
[2020-12-13 08:39] VITALS: BP 143/82; PULSE 74; RESP 18; TEMP 36.7; O2SAT 96
--- NOTE | 2020-12-13 17:48 | ANE.PACU2 ---
Inpatient post-anesthesia follow up: Airway intact: Yes Vital signs: Temperature 98.0 F Pulse Rate 74 Respiratory Rate 18 Blood Pressure 143/82 Pulse Oximetry 96 Oxygen Delivery Me thod Room Air Oxygen Flow Rate Fraction of Inspir ed Oxygen Hydration adequate: Yes Nausea and vomiting: No Pain level: 2 Mental status: Baseline
== END 2020-12-13 09:09 | disposition home or self-care (01) ==
PROVIDERS: Anesthesiology; PCP Nurse Practitioner Family; Visit Provider Orthopaedic Surgery
PROC: (CPT 64721; principal; 2020-12-13 07:00)
PROC: (CPT 64718; 2020-12-13 07:00)
DX: G56.01 Carpal tunnel syndrome, right upper limb (principal); G56.21 Lesion of ulnar nerve, right upper limb; E11.9 Type 2 diabetes mellitus without complications; F17.210 Nicotine dependence, cigarettes, uncomplicated
CPT/HCPCS: 64718; 64721; 36416; 82962; 84703; J0690; J2405; J2704; J3490; J7030

== ENCOUNTER → 2022-07-23 11:37 | Outpatient (BNVA) | payer BC, SELFPAY | PROVIDERS: PCP Nurse Practitioner Family; Visit Provider Emergency Medicine | DX: S99.921A Unspecified injury of right foot, initial encounter (principal); S90.32XA Contusion of left foot, initial encounter; X58.XXXA Exposure to other specified factors, initial encounter | CPT/HCPCS: 73630 ==

== ENCOUNTER 2022-12-13 13:39 | Outpatient (CLI) | payer BC, SELFPAY ==
--- NOTE | 2022-12-13 13:55 | MM_ITS ---
WS: [id number] BILATERAL 3D TOMOSYNTHESIS DIGITAL SCREENING MAMMOGRAPHY WITH CAD CLINICAL INFORMATION: SCREENING HISTORY: Screening mammogram. No current complaints. COMPARISON: Baseline TECHNIQUE: Bilateral CC and MLO views. FINDINGS: Scattered fibroglandular densities bilaterally. No suspicious focal mass, asymmetry, calcifications, or architectural distortion. No evidence of malignancy. Punctate and lucent centered calcifications. IMPRESSION: MM/[place] [id number] BI-RADS: 2-Benign FOLLOW UP: 1 Year Follow-up Recommend return to annual screening mammography.
== END 2022-12-13 13:40 | disposition home or self-care (01) ==
LOC: RAD 13:53 → MOBLMAM 13:53
PROVIDERS: PCP Nurse Practitioner Family; Visit Provider Physician Assistant
DX: Z12.31 Encounter for screening mammogram for malignant neoplasm of breast (principal)
CPT/HCPCS: 77063; 77067

== ENCOUNTER 2024-03-07 07:18 | Emergency (ER) | payer BC, SELFPAY ==
[2024-03-07 07:33] VITALS: BP 173/91; PULSE 97; RESP 16; TEMP 36.6; O2SAT 97; BMI 32.5
--- NOTE | 2024-03-07 07:44 | W.ED.DENTAL ---
HPI - Dental/Oral General: Chief complaint: Dental/Oral Stated complaint: swollen left side of face Time Seen by Provider: 03/07/24 07:37 Source: patient Mode of arrival: ambulatory Limitations: no limitations History of Present Illness: 43-year-old female states she has been having some left upper dental pain over the last week states she had swelling started overnight and increased pain rates the pain a 6 out of 10 denies difficulty swallowing denies any fevers. Denies any vomiting Associated symptoms: Denies fever(s) Related Data Home Medications Medication Instructions Recorded Confirmed pioglitazone 30 mg tablet 30 mg PO DAILY 10/06/19 07/23/22 acetaminophen 650 mg 650 mg PO Q8H 11/23/20 02/06/21 tablet,extended release (Tylenol Arthritis Pain) Previous Rx's Medication Instructions Recorded cephalexin 500 mg capsule 500 mg PO TID 7 days #21 caps 03/07/24 hydrocodone 5 mg-acetaminophen 325 1 tab PO Q6H PRN pain #14 tabs 03/07/24 mg tablet Allergies Allergy/AdvReac Type Severity Reaction Status Date / Time No Known Allergies Allergy Verified 07/23/22 11:11 Review of Systems Const: Denies: fever(s), chills, body aches or change in appetite Eyes: Denies: blurry vision or eye discomfort ENMT: Reports: dental pain; Denies: throat pain Card: Denies: chest pain Resp: Denies: dyspnea GI: Denies: abdominal pain, nausea, vomiting or diarrhea Musc: Denies: neck pain or back pain Skin/Breast: Denies: rash Neuro: Denies: headache(s) PFSH ED PFSH: Medical History Type 2 diabetes mellitus Surgical History H/O tubal ligation Family History Family/Other Diabetes Denies family history of CAD (coronary artery disease) Cancer Social History Quit status (tobacco/nicotine): not considering quitting Second hand smoke exposure: No Alcohol intake: current Alcohol intake frequency: holidays/special occasions only Physical Exam Const: COMMON NORMALS: no acute distress, patient oriented x3 and healthy appearing HENMT: COMMON NORMALS: normocephalic and atraumatic HEAD & SCALP: normocephalic and atraumatic OTHER: Tenderness left upper molar inflammation to the gum no abscess no trismus Neck/C-Spine: COMMON NORMALS: full ROM and supple Chest: COMMONS NORMALS: normal inspection of the chest Resp: COMMON NORMALS: normal respiratory effort Cardio: COMMON NORMALS: regular rate RATE: regular rate Extremity: COMMON NORMALS: normal to inspection and full ROM Neuro: COMMON NORMALS: patient oriented x3, moves all extremities and no focal motor deficits Psych: COMMON NORMALS: mental status grossly normal, Normal thought process present and cooperative THOUGHT PROCESS: Normal thought process present Skin: COMMON NORMALS: no rashes or lesions noted and no wounds GENERAL SKIN EXAM: no rashes or lesions noted Course Vital Signs: Vital signs: Vital Signs Temperature 97.8 F 03/07/24 07:33 Pulse Rate 97 03/07/24 07:33 Respiratory Rate 16 03/07/24 07:33 Blood Pressure 173/91 03/07/24 07:33 Pulse Oximetry 97 03/07/24 07:33 Oxygen Delivery Me thod Room Air 03/07/24 07:33 MDM - Dental/Oral Medical Decision Making Patient presents here with dental pain no abscess or trismus noted we will start her on a like she is to follow-up with dentist return if worsening. No radiology studies performed this visit Discharge Plan Discharge Patient Disposition: Home Clinical Impression: Toothache Condition: Stable Prescriptions: New hydrocodone-acetaminophen 5-325 mg tablet 1 tab PO Q6H PRN (Reason: pain) Qty: 14 0RF cephalexin 500 mg capsule 500 mg PO TID 7 Days Qty: 21 0RF No Action pioglitazone 30 mg tablet 30 mg PO DAILY acetaminophen [Tylenol Arthritis Pain] 650 mg tablet extended release 650 mg PO Q8H Discharge Orders: Discharge ED (Routine); Ordered 03/07/24 Ordered By: Miguelangel Brooks Referrals: Dariana Lemons FNP [Primary Care Provider] - Discharge Diet: Advance as tolerated Discharge Activity: Resume usual activity Patient Instructions: Opioid Safety, Toothache (ED) Coding Level of Care Code ED [employer] Forming Machine Tender for Rola Najera
[2024-03-07] MEDS: cephALEXin 500 mg Capsule PO (08:06)
[2024-03-07] MEDS: HYDROcodone-acetaminophen 5-325 mg Tablet 1 TAB PO (08:06)
[2024-03-07 08:10] VITALS: BP 173/91; PULSE 98; O2SAT 97
== END 2024-03-07 08:11 | disposition home or self-care (01) ==
PROVIDERS: Emergency Provider Emergency Medicine; PCP Nurse Practitioner Family
DX: K08.89 Other specified disorders of teeth and supporting structures (principal); E11.9 Type 2 diabetes mellitus without complications
CPT/HCPCS: 99283

== ENCOUNTER 2024-10-21 13:46 | Outpatient (CLI) | payer BC, SELFPAY ==
--- NOTE | 2024-10-21 13:40 | MM_ITS ---
WS: [id number] BILATERAL 3D TOMOSYNTHESIS DIGITAL SCREENING MAMMOGRAPHY WITH CAD CLINICAL INFORMATION: SCREENING HISTORY: Screening mammogram. No current complaints. COMPARISON: 2022 TECHNIQUE: Bilateral CC and MLO views. FINDINGS: Scattered fibroglandular densities bilaterally. No suspicious focal mass, asymmetry, calcifications, or architectural distortion. No evidence of malignancy. Incidental punctate and lucent centered calcifications RIGHT breast. MM/MM scr tomosynthesis [id number] IMPRESSION: DENSITY: There are scattered areas of fibroglandular density. BI-RADS: 2 - Benign. FOLLOW UP: 1 Year Follow-up Recommend return to annual screening mammography.
== END 2024-10-21 13:47 | disposition home or self-care (01) ==
PROVIDERS: PCP Nurse Practitioner Occupational Health; Visit Provider Nurse Practitioner Occupational Health
DX: Z12.31 Encounter for screening mammogram for malignant neoplasm of breast (principal)
CPT/HCPCS: 77063; 77067